=== PATIENT | male | born 1955 | race Caucasian/White ===

== ENCOUNTER 2024-11-18 10:54 | Outpatient (AMB) | payer OTHER, MEDICARE, SELFPAY ==
[2024-11-18 11:12] VITALS: BMI 25.1
--- NOTE | 2024-11-18 11:12 | A.SPINEOV_ITS ---
Vital Signs 11/18/24 11:12 Height 5 ft 10 in Weight 175 lb BMI 25.1 Intake Visit Reasons: LBP L4-L5/Sciatica Bilateral Intake Note: Mr. Barnhart is here today c/o Low back pain that radiates down to both legs. Insecticide Expert Required: No Allergies No Known Allergies Allergy (Verified 11/18/24 11:13) Physical Exam Vital Signs: BMI result Body Mass Index 25.1 Assessment & Plan Assessment & Plan (1) Lumbar stenosis: Code(s): M48.061 - Spinal stenosis, lumbar region without neurogenic claudication Category: Medical Plan This is a very nice 68-year-old gentleman self-referred to us, who presents for evaluation of right-sided low back pain radiating into initially just as right leg but now developed over into his left leg. It is aggravated with standing walking gets better when he sits down. Initially it was tolerable with ibuprofen, but now it is become worse as the months of gone on. He is having a hard time doing simple things like getting up in the morning and taking short walks. He usually will take his granddaughter for a walk down to the library and he has been unable to do that. He is also an active golfer, and when he plays he will have a significant difficulty trying to play the next day. He underwent physical therapy and that did not yield any lasting results. He is due for a cortisone injection coming up, and has been seen by pain management. It sounds like they may have consider doing a spinal cord stimulator on him as well. He takes ibuprofen daily to help with the pain. It does make it somewhat manageable but it is short lived and in general has not been a good long-term strategy. He has also done chiropractic and acupuncture. He is here today with an MRI done at [facility] showing severe stenosis at L4-5. PMH: Has a history of OCD, depression, BPH, anxiety, multiple shoulder operations. 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 Denies any major systemic disease, no cardiopulmonary issues, liver renal disease, diabetes, bleeding disorders, blood clots, cancer, major abdominal surgery or infections. 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 He has a slight spondylolisthesis at L4-5. He has epidural lipomatosis. He had a thoracic spinal MRI done as well and this showed incidental moderate C5-6 stenosis. No cord signal change. Mild T10-11 stenosis. Impression: 68-year-old male with right-sided low back pain progressive bilateral worsening leg pain right greater than left, worse when he stands and walks, better when he sits down. He has severe stenosis at L4-5. There is a slight spondylolisthesis there, so we will check flexion-extension x-rays to rule out instability. However, Dr. Martines and I sat down and met with him and offered him an L4-5 decompression, through right-sided approach we can do bilateral decompression with minimally invasive technique. We quoted success rate at 90%. The patient was given risk and benefits of surgery including but not limited to infection, hematoma, nerve injury, durotomy, weakness, bowel/bladder injury, persistent pain,[ ]. We also discussed the option to continue with conservative treatment and patient wishes to proceed with surgery. They are aware they should stop NSAIDs 7 days prior to surgery. All questions were answered to the best of our ability. If there is anything about this patients medical history that we have overlooked or concerns you have about us proceeding with surgery we would appreciate any input you can offer Thank you for allowing us to care for your patient. The total time spent with this visit with this patient was 45 minutes reviewing history, physical exam, lumbar imaging review, and implementation of treatment plan or further diagnostic testing Scottie Martines MD,PhD [facility] Orders: Orders XR lumbar spine 4V min Today M48.061 - Spinal stenosis, lumbar region without neurogenic claudication Coding Level of Care Code New Pt Level 4 (55149) Diagnoses Lumbar stenosis M48.061
--- OUTSIDE RECORDS SUMMARY | 2024-11-18 12:07 | XMS_ITS | Encounter Summary ---
Author Organization [facility] Address [address] [place] [address] Care Team Providers Care Manager Learning Name Role Phone Edwin Mensah DO Primary Care Provider Encounter Details Date Type Department Care Team (Late st Contact Info) Description 03/04/2024 Prep for Case [facility] [id number] Eddy Baker MD [address] [place] [address] Social History Tobacco Use Types Packs/Day Years Used Date Smoking Tobacco: Never Assessed Sex and Gender Information Value Date Recorded Sex Assigned at Male 02/29/2024 1:52 PM EST Legal Sex Male 8:55 AM EST Gender Identity Male 02/29/2024 1:52 PM EST Sexual Orientation Straight 02/29/2024 1: 52 PM EST documented as of this encounter Plan of Treatment Not on file documented as of this encounter Visit Diagnoses Not on filedocumented in this encounter Care Teams Manager Learning Relationship Specialty Start Date End Date Edwin Mensah DO [address] [place] [address] PCP - General Internal Medicine 02/29/24 documented as of this encounter
--- OUTSIDE RECORDS SUMMARY | 2024-11-18 12:07 | XMS_ITS | Patient Health Record ---
Author Organization [facility] Address [address] [address] Care Team Providers Care Candy Separator Hard Name Role Phone NADYA LEE, DR RANDALL Primary Care Provider Unava LLUVIA Martinez Unavailable [phone] Allergies No Known Allergies Reason For Referral No Information Medications Medication SIG (Take, Route, Frequency, Duration) Notes Start Date End Date Status hydroCHLOROthiazide 25 MG 1 tab(s) orally qd Active Problems Problem Type SNOMED Code ICD Code Onset Dates Problem Status W/U Status Risk Notes Problem Stricture of artery (18670867) Stricture of artery (I77.1) Active confirmed Plan Of Treatment No Information Insurance Providers Payer Name Payer Address Payer Phone Subscriber Number Group Number Insured Name Patient Relationship to Insured Coverage Start Date Coverage End Date [facility] [address] [place] [address] [id number] DONY HYMAN Self - patient is the insured
--- OUTSIDE RECORDS SUMMARY | 2024-11-18 12:07 | XMS_ITS | Clinical Summary ---
Author Organization [facility] Address [address] [place] [address] Care Team Providers Care Astro Technician Name Role Phone Edwin Mensah DO Primary Care Provider [phone] Allergies No known active allergies Medications ClonazePAM 0.5 MG Tab 1 TABLET 3 TIMES DAILY Active QUEtiapine Fumarate (SEROQUEL) 25 MG Tab 1 TABLET TWICE DAILY Active HydroCHLOROthi azide 12.5 MG Tab 1 TABLET DAILY Activ e Tamsulosin HCl (FLOMAX) 0.4 MG Cap 1 CAPSULE DAILY Acti ve Buprenorphine HCl 2 MG SL Tab Buprenorphine HCl - 8 MG Sublingual Tablet daily Sublingual Quantity: 35; Refills: 0 Started 26-Jan-2012 Active 2 Active ClomiPRAMINE HCl 50 MG Cap Anafranil 50 MG Oral Capsule , one capsule daily Active Ibuprofen 800 MG Tab TAKE 1 TABLET BY MOUTH EVERY 8 HOURS NEEDED FOR MILD PAIN(PAIN SCORE 1 TO 3) 8 Active Testosterone 200 MG PELLET Inject 150 mg into the shoulder, thigh, or buttocks muscle as directed every 14 days. Active Amphetamine-De xtroamphetamin e 30 MG Tab Amphetamine-Dextr oamphetamine 30 MG Oral Tablet Quantity: 30; Refills: 0 Started 01-Nov-2013 Active 4 Active Active Problems No known active problems Social History Tobacco Use Types Packs/Day Years Used Date Smoking Tobacco: Never Smokeless Tobacco: Never Intimate Partner Violence Answer Date R ecorded Fear of Current or Ex-Partner Not on file Emotionally Abused Not on file 10/09/2022 Physically Abused Not on file 10/09/2022 Sexually Abused Not on file 10/09/2022 Feel Safe at Home Not on file 10/09/2022 Sex and Gender Information Value Date Recorded Sex Assigned at Not on file Legal Sex Male 8:06 PM EST Gender Identity Not on file Sexual Orientation Not on file Last Filed Vital Signs Vital Sign Reading Time Taken Comments Blood Pressure 139/88 11/22/2017 1:47 PM EDT Pulse 91 11/22/2017 1:47 PM EDT Temperature 36.7 C (98 F) 11/22/2017 1:47 PM EDT Respiratory Rate 14 11/22/2017 1:47 PM EDT Oxygen Saturation - - Inhaled Oxygen Concentration - - Weight 83.9 kg (185 lb) 11/22/2017 1:47 PM EDT Height 180.3 cm (5' 11 ) 11/22/2017 1:47 PM EDT Body Mass Index 25.8 11/22/2017 1:47 PM EDT Plan of Treatment Health Maintenance Due Date Last Done Comments Hepatitis C Screening 1955 DTaP/Tdap/Td (1 - Tdap) 12/28/1973 Pneumococcal 50+ years (1 of 1 - PCV) 12/28/2005 Zoster (Shingrix) (1 of 2) 12/28/2005 COVID-19 Vaccine (1 - 2023-2 5 season) 2024 Influenza (#1) 2024 10/20/2013, 11/06/2011, 12/02/2010 RSV (1 - 1-dose 75+ series) 12/28/2030 Abdominal Aorta Imaging Discontinued HPV Vaccine (No Doses Required) Completed Hep A Aged Out No longer eligi ble based on patient's age to complete this topic Hep B Aged Out No longer eligi ble based on patient's age to complete this topic Hib Aged Out No longer eligi ble based on patient's age to complete this topic Meningococcal ACWY Aged Out No longer eligible based on patient's age to complete this topic Zoster (Zostavax) Discontinued Insurance [facility] POS Member Subscriber Plan / Payer (Ef fective 2016-Present) Name:Eddy Barnhart Relation to Subscriber:Self Name:Eddy Barnhart Payer ID:[id number] (NAIC) Type:POS Address: [address] [place] [id number] Care Teams Astro Technician Relationship Specialty Start Date End Date Edwin Mensah DO [facility] [address] [place] [address] PCP - General Internal Medicine 01/02/17
--- OUTSIDE RECORDS SUMMARY | 2024-11-18 12:07 | XMS_ITS | Encounter Summary ---
Author Organization [facility] Address [address] [place] [address] Care Team Providers Care Inclusion Internship Name Role Phone Edwin Mensah DO Primary Care Provider [phone] Reason for Referral * Diagnostic Imaging (Routine) - Pending Review Specialty Diagnoses / Procedures Referred By Roselyn roberts Referred To Contact Radiology Diagnoses Pain in joint of left shoulder Procedures X-RAY SHOULDER 2+ VIEWS LEFT Felipa Cazares PA [address] [place] [address] Phone: tel: fax: Referral ID Status Reason Start Date Expiration Date V isits Requested Visits Authorized [id number] Pending Review 05/04/2024 05/04/2025 1 1 Encounter Details Date Type Department Care Team (Late st Contact Info) Description 05/04/2024 Ancillary Orders [facility] X-ray [address] [place] [address] Felipa Cazares PA [address] [place] [address] Pain in joint of left shoulder (Primary Dx) Social History Tobacco Use Types Packs/Day Years Used Date Smoking Tobacco: Never Alcohol Use Standard Drinks/Week Comments Not Currently 0 (1 standard drink = 0.6 oz pur e alcohol) sober for 38 years. Sex and Gender Information Value Date Recorded Sex Assigned at Male 02/29/2024 1:52 PM EST Legal Sex Male 8:55 AM EST Gender Identity Male 02/29/2024 1:52 PM EST Sexual Orientation Straight 02/29/2024 1: 52 PM EST documented as of this encounter Plan of Treatment Not on file documented as of this encounter Results * X-RAY SHOULDER 2+ VIEWS LEFT (05/06/2024 11:23 AM EDT) Anatomical Region Laterality Modality Shoulder Left Digital Radiogra phy 05/06/2024 12:0 0 PM EDT Impressions 05/06/2024 11:41 AM EDT Left shoulder prosthesis in normal anatomic alignment. Dictated: 05/06/2024 11:41 AM Report ID: [id number] Exam performed at [facility]. Report signed in external system at [facility] on 05/06/2024 11:41 Reported By: Mark Steiner M.D. (SHELDON) Signed By: Mark Steiner M.D. (SHELDON) Narrative 05/06/2024 11:41 AM EDT RESPONSIBLE ENTRY ENGINEER: Mark Steiner M.D. EXAMINATION: XR SHOULDER 2+ VW LEFT CLINICAL INDICATION: Left shoulder pain. TECHNIQUE: Three views of the left shoulder. COMPARISON: CT SHOULDER LEFT WO CONTRAST dated 03/11/2024 FINDINGS: Post total left shoulder replacement with the result in anatomic alignment. The prosthesis is normal in appearance. The remainder of the bones and the soft tissues are unchanged. Procedure Note Mark Steiner MD - 05/06/2024 RESPONSIBLE ENTRY ENGINEER: Mark Steiner M.D. EXAMINATION: XR SHOULDER 2+ VW LEFT CLINICAL INDICATION: Left shoulder pain. TECHNIQUE: Three views of the left shoulder. COMPARISON: CT SHOULDER LEFT WO CONTRAST dated 03/11/2024 FINDINGS: Post total left shoulder replacement with the result in anatomicalignment. The prosthesis is normal in appearance. The remainder of thebones and the soft tissues are unchanged. IMPRESSION: Left shoulder prosthesis in normal anatomic alignment. Dictated: 05/06/2024 11:41 AM Report ID: [id number] Exam performed at [facility]. Report signed in external system at [facility] on 1:41 Reported By: Mark Steiner M.D. ([facility]) Signed By: Mark Steiner M.D. ([facility]) Felipa FERNANDEZ IMG XR PROCEDURES Final Result documented in this encounter Visit Diagnoses Diagnosis Pain in joint of left shoulder- Primary Pain in joint of left shoulder documented in this encounter Care Teams Inclusion Internship Relationship Specialty Start Date End Date Edwin Mensah DO [address] [place] [address] PCP - General Internal Medicine 02/29/24 documented as of this encounter
--- OUTSIDE RECORDS SUMMARY | 2024-11-18 12:07 | XMS_ITS | Clinical Summary ---
Author Organization [facility] Address [address] [place] [address] Care Team Providers Care Make Up Worker Name Role Phone MensahEdwin allenYi SUAREZ Primary Care Provider [phone] Allergies No known active allergies Medications buprenorphine HCL 8 mg tablet, sublingual Place 1 tablet (8 mg total) under the tongue daily. Active alfuzosin (UROXATRAL) 10 mg 24 hr tablet Take 1 tablet (10 mg total) by mouth daily. Active clomiPRAMINE (ANAFRANIL) 50 mg capsule Take 1 capsule (50 mg total) by mouth nightly. Active CLONAZEPAM ORAL Take 1 mg by mouth. Active amphetamine-dex troamphetamine XR (ADDERALL XR) 30 mg 24 hr capsule Take 1 capsule (30 mg total) by mouth 2 (two) times a day. Active hydroCHLOROthia zide (HYDRODIURIL) 25 mg tablet Take 1 tablet (25 mg total) by mouth daily. Active losartan (Cozaar) 50 mg tablet Take 2 tablets (100 mg total) by mouth daily. Active labetaloL (NORMODYNE) 200 mg tablet Take 1 tablet (200 mg total) by mouth 2 (two) times a day. Active multivitamin with minerals tablet Take 1 tablet by mouth daily. Active cholecalciferol , vitamin D3, (VITAMIN D3 ORAL) Take by mouth. Active Social History Tobacco Use Types Packs/Day Years Used Date Smoking Tobacco: Never Tobacco Cessation:Counseling Given: Not Answered Alcohol Use Standard Drinks/Week Comments Not Currently 0 (1 standard drink = 0.6 oz pur e alcohol) sober for 38 years. Sex and Gender Information Value Date Recorded Sex Assigned at Male 02/29/2024 1:52 PM EST Legal Sex Male 8:55 AM EST Gender Identity Male 02/29/2024 1:52 PM EST Sexual Orientation Straight 02/29/2024 1: 52 PM EST Last Filed Vital Signs Vital Sign Reading Time Taken Comments Blood Pressure - - Pulse - - Temperature - - Respiratory Rate - - Oxygen Saturation - - Inhaled Oxygen Concentration - - Weight 83.5 kg (184 lb) 03/16/2024 12:21 PM EST Height 177.8 cm (5' 10 ) 03/16/2024 12:21 PM EST Body Mass Index 26.4 03/16/2024 12:21 PM EST Plan of Treatment Health Maintenance Due Date Last Done Comments Hepatitis C Screening 12/28/1973 Periodic Health Exam 12/28/1973 Tetanus Diphtheria and Pertussis Vaccines (TD and TDaP) (1 - Tdap) 12/28/1974 Colon Cancer Screening 12/28/2000 Pneumococcal Vaccine: 65+ Years (1 of 1 - PCV) 12/28/2020 Influenza (Seasonal) 09/16/2024 12/15/2022, 01/14/2022, 12/21/2018, Additional history exists CoVid-19 Vaccine ( season) 2024 11/19/2020, 05/21/2020, 04/30/2020 Shingrix (Zoster Recombinant) Vaccine Completed 01/14/2022, 12/21/2017, 10/06/2017 HIB Vaccines Aged Out No longer eligi ble based on patient's age to complete this topic HPV Vaccines Aged Out No longer eligi ble based on patient's age to complete this topic Meningococcal Vaccine Aged Out No neptali moira eligible based on patient's age to complete this topic Insurance [address] [address] [address] PPO Care Teams Make Up Worker Relationship Specialty Start Date End Date Edwin Mensah DO [address] [place] [address] PCP - General Internal Medicine 02/29/24
--- OUTSIDE RECORDS SUMMARY | 2024-11-18 12:07 | XMS_ITS | Encounter Summary ---
Author Organization [facility] Address [address] [place] [address] Care Team Providers Care Consulting Project Director Name Role Phone Edwin Mensah DO Primary Care Provider Encounter Details Date Type Department Care Team (Late st Contact Info) Description 03/18/2024 Procedure [facility] [address] [place] [id number] [phone] Social History Tobacco Use Types Packs/Day Years [...] on filedocumented in this encounter Care Teams Consulting Project Director Relationship Specialty Start Date End Date Edwin Mensah DO [address] [place] [address] PCP - General Internal Medicine 02/29/24 documented as of this encounter
--- OUTSIDE RECORDS SUMMARY | 2024-11-18 12:07 | XMS_ITS | Encounter Summary ---
Author Organization [facility] Address [address] [place] [address] Care Team Providers Care Cataract Lens Generator Name Role Phone Edwin Mensah DO Primary Care Provider [phone] Reason for Referral * Diagnostic Imaging (Routine) - Closed Specialty Diagnoses / Procedures Referred By Roselyn roberts Referred To Contact Radiology Diagnoses Other specified joint disorders, left shoulder Procedures CT SHOULDER LEFT WITHOUT CONTRAST Eddy Baker MD [address] [place] [address] Phone: tel: fax: Referral ID Status Reason Start Date Expiration Date Visits Re quested Visits Authorized [id number] Closed 02/23/2024 02/22/2025 1 1 Encounter Details Date Type Department Care Team (Late st Contact Info) Description 02/23/2024 Ancillary Orders [facility] CT Scan [address] [place] [address] Eddy Baker MD [address] [place] [address] Other specified joint disorders, left shoulder (Primary Dx) Social History Tobacco [...] documented as of this encounter Results * CT SHOULDER LEFT WITHOUT CONTRAST (03/11/2024 8:02 AM EST) Anatomical Region Laterality Modality Shoulder Left Computed Tomogra phy 03/11/2024 8:30 AM EST Impressions 03/11/2024 8:24 AM EST Left glenohumeral joint osteoarthritis with a small joint effusion and tiny loose bodies in the axillary pouch. Old fracture deformity of the left distal clavicle. Osteoarthritis of the left AC joint. Fatty atrophy of the supraspinatus and infraspinatus muscles Tiny pulmonary nodules. Non urgent low-dose chest CT is recommended for assessment of the lungs. Dictated: 03/11/2024 8:24 AM Report ID: [id number] Exam performed at [facility]. Report signed in external system at [facility] on 03/11/2024 08:24 Reported By: Grayson King M.D. (MARED) Signed By: Grayson King M.D. (MARKENDY) Narrative 03/11/2024 8:24 AM EST RESPONSIBLE BIRD KEEPER: Grayson King M.D. EXAMINATION: CT SHOULDER LEFT WO CONTRAST CLINICAL INDICATION: 68-year-old for evaluation prior to total left shoulder replacement. Left shoulder pain. TECHNIQUE: Continuous axial images were obtained through the left glenohumeral joint on a multidetector CT scanner without intravenous contrast. 2-D sagittal and coronal reconstructions were performed. Dose reduction technique: iterative reconstruction. COMPARISON: None FINDINGS: BONES: Normal bone mineral density. Old healed fracture deformity of the distal left clavicle. Multiple well corticated bone fragments project inferior to the clavicle at the level of the coracoclavicular ligament. JOINTS: Osteoarthritis at the glenohumeral joint characterized by asymmetric joint space narrowing and marginal osteophytes. Severe osteoarthritis of the left acromioclavicular joint. SOFT TISSUES: Muscle atrophy of the supraspinatus and infraspinatus muscles. Small joint effusion. Tiny loose bodies in the axillary pouch. Pleural and parenchymal scarring noted at the left lung apex. 3 mm pars solid nodule series 4, image 104 left upper lobe. 1-2 mm nodule image 91. No mediastinal lymphadenopathy. Procedure Note Grayson King MD - 03/11/2024 RESPONSIBLE BIRD KEEPER: Grayson King M.D. EXAMINATION: CT SHOULDER LEFT WO CONTRAST CLINICAL INDICATION: 68-year-old for evaluation prior to total left shoulder replacement. Leftshoulder pain. TECHNIQUE: Continuous axial images were obtained through the left glenohumeral jointon a multidetector CT scanner without intravenous contrast. 2-D sagittaland coronal reconstructions were performed. Dose reduction technique: iterative reconstruction. COMPARISON: None FINDINGS: BONES: Normal bone mineral density. Old healed fracture deformity of thedistal left clavicle. Multiple well corticated bone fragments projectinferior to the clavicle at the level of the coracoclavicular ligament. JOINTS: Osteoarthritis at the glenohumeral joint characterized byasymmetric joint space narrowing and marginal osteophytes. Severe osteoarthritis of the left acromioclavicular joint. SOFT TISSUES: Muscle atrophy of the supraspinatus and infraspinatusmuscles. Small joint effusion. Tiny loose bodies in the axillarypouch. Pleural and parenchymal scarring noted at the left lung apex. 3 mm parssolid nodule series 4, image 104 left upper lobe. 1-2 mm nodule image91. No mediastinal lymphadenopathy. IMPRESSION: Left glenohumeral joint osteoarthritis with a small joint effusion andtiny loose bodies in the axillary pouch. Old fracture deformity of the left distal clavicle. Osteoarthritis of theleft AC joint. Fatty atrophy of the supraspinatus and infraspinatus muscles Tiny pulmonary nodules. Non urgent low-dose chest CT is recommended forassessment of the lungs. Dictated: 03/11/2024 8:24 AM Report ID: [id number] Exam performed at [facility]. Report signed in external system at [facility] on 508:24 Reported By: Grayson King M.D. (SHARRI) Signed By: Grayson King M.D. (SAHRRI) Eddy Baker MD [facility] CT PROCEDURES Final Result documented in this encounter Visit Diagnoses Diagnosis Other specified joint disorders, left shoulder- Primary Other specified joint disorders, left shoulder documented in this encounter Care Teams Cataract Lens Generator Relationship Specialty Start Date End Date Edwin Mensah DO [address] [place] [address] PCP - General Internal Medicine 02/29/24 documented as of this encounter
--- OUTSIDE RECORDS SUMMARY | 2024-11-18 12:07 | XMS_ITS | Clinical Summary ---
Author Organization [facility] Address [address] [place], [place] [id number] Care Team Providers [employer] Person Name Role Phone Edwin Mensah Primary Care Provider [phone] Medications dextroamphetami ne-amphetamine ER (ADDERALL XR) 30 MG 24 hr capsule Take 1 capsule (30 mg total) by mouth 2 (two) times a day. 03/16/2024 Active hydroCHLOROthia zide (HYDRODIURIL) 25 MG tablet Take 1 tablet (25 mg total) by mouth daily. 03/16/2024 Active labetaloL (TRANDATE) 200 MG tablet Take 1 tablet (200 mg total) by mouth 2 (two) times a day. 03/16/2024 Active multivitamin with minerals tablet Take 1 tablet by mouth daily. 03/16/2024 Active buprenorphine (SUBUTEX) [address] 1 tablet (8 mg total) under the tongue daily. 03/16/2024 Active clomiPRAMINE (ANAFRANIL) 50 MG capsule Take 1 capsule (50 mg total) by mouth nightly. 03/16/2024 Active alfuzosin ER (UROXATRAL) 10 mg 24 hr tablet Take 1 tablet (10 mg total) by mouth daily. 03/16/2024 Active losartan (COZAAR) 50 MG tablet Take 2 tablets (100 mg total) by mouth daily. 03/16/2024 Active Immunizations Immunization Administration Dates Next Due COVID-19 Vaccine ([employer]) Original Formulation (prior to Feb 2021) 11/19/2020,05/21/2020,04/30/2020 Social History Tobacco Use Types Packs/Day Years Used Date Smoking Tobacco: Never Alcohol Use Standard Drinks/Week Comments Not Currently 0 (1 standard drink = 0.6 oz pur e alcohol) Sex and Gender Information Value Date Recorded Sex Assigned at Male 11/17/2024 9:33 AM EDT Legal Sex Male 1:04 AM EST Gender Identity Male 11/17/2024 9:33 AM EDT Sexual Orientation Straight 11/17/2024 9: 33 AM EDT Plan of Treatment Health Maintenance Due Date Last Done Comments Blood Pressure 1955 Lipid Panel 1955 PSA 1955 Prostate Cancer Screening 1955 SDM 1955 Depression Screening 1959 Hepatitis C Screening 12/28/1973 DTaP,Tdap,and Td Vaccines (1 - Tdap) 12/28/1974 CT Colonography 12/28/2000 Colonoscopy 12/28/2000 Colorectal Cancer Screening 12/28/2000 FIT 12/28/2000 FOBT 12/28/2000 Multitarget Stool DNA (Cologuard) 12/28/2000 Sigmoidoscopy 12/28/2000 Pneumococcal Vaccine: 50+ Years (1 of 1 - PCV) 12/28/2005 Zoster Vaccine (1 of 2) 12/28/2005 COVID-19 Vaccine (4 - 2024-2 6 season) 2024 11/19/2020, 05/21/2020, 04/30/2020 Influenza Vaccine (#1) 2024 Meningococcal B Vaccines Aged Out No longer eligible based on patient's age to complete this topic Meningococcal Vaccines Aged Out No lo nger eligible based on patient's age to complete this topic Care Teams [employer] Person Relationship Specialty Start Date End Date Edwin Mensah [address] [place] [id number] PCP - General Internal Medicine 02/29/24
--- OUTSIDE RECORDS SUMMARY | 2024-11-18 12:07 | XMS_ITS | Encounter Summary ---
Author Organization [facility] Address [address] [place] [address] Care Team Providers Care Lance Crewmember Name Role Phone Edwin Mensah DO Primary Care Provider [phone] Reason for Referral * Diagnostic Imaging (Routine) - Pending Review Specialty Diagnoses / Procedures Referred By Roselyn roberts Referred To Contact Radiology Diagnoses Pain in joint of left shoulder Procedures X-RAY SHOULDER 2+ VIEWS LEFT Eddy Baker MD [address] [place] [address] Phone: tel: fax: Referral ID Status Reason Start Date Expiration Date V isits Requested Visits Authorized [id number] Pending Review 06/26/2024 06/26/2025 1 1 Encounter Details Date Type Department Care Team (Late st Contact Info) Description 06/26/2024 Ancillary Orders [facility] X-ray [address] [place] [id number] Eddy Baker MD [address] [place] [address] Pain in joint of left shoulder (Primary [...] Results * X-RAY SHOULDER 2+ VIEWS LEFT (06/27/2024 2:42 PM EDT) Anatomical Region Laterality Modality Shoulder Left Digital Radiogra phy 06/27/2024 3:45 PM EDT Impressions 06/27/2024 3:27 PM EDT Normal anatomic alignment of the left reverse total shoulder arthroplasty without evidence of hardware complication. I, the attending physician, attest that I have performed and/or supervised the resident for the terrell and critical components of this procedure. I have personally reviewed the images pertinent to this examination and agree with the interpretation. Dictated: 06/27/2024 3:27 PM Report ID: [id number] Exam performed at [facility]. Report signed in external system at [facility] on 06/27/2024 15:27 Reported By: Hailey Burgess M.D. (resident) ([id number]) Signed By: Isaac Magana M.D. ([facility]) Narrative 06/27/2024 3:27 PM EDT RESPONSIBLE CHOIR DIRECTOR: Isaac Magana M.D. EXAMINATION: XR SHOULDER 2+ VW LEFT CLINICAL INDICATION: Left shoulder pain. TECHNIQUE: Three views of the left shoulder. COMPARISON: XR SHOULDER 2+ VW LEFT dated 05/06/2024; CT SHOULDER LEFT WO CONTRAST dated 03/11/2024 FINDINGS: The patient is status post reverse total left shoulder arthroplasty with hardware in anatomic alignment. There is no evidence of hardware loosening or fracture. Osteoarthritis of the acromioclavicular joint. The partially imaged left thorax is normal. Procedure Note Isaac Magana MD - 06/27/2024 RESPONSIBLE CHOIR DIRECTOR: Isaac Magana M.D. EXAMINATION: XR SHOULDER 2+ VW LEFT CLINICAL INDICATION: Left shoulder pain. TECHNIQUE: Three views of the left shoulder. COMPARISON: XR SHOULDER 2+ VW LEFT dated 05/06/2024; CT SHOULDER LEFT WO CONTRAST date03/11/2024 FINDINGS: The patient is status post reverse total left shoulder arthroplasty withhardware in anatomic alignment. There is no evidence of hardwareloosening or fracture. Osteoarthritis of the acromioclavicular joint. The partially imaged left thorax is normal. IMPRESSION: Normal anatomic alignment of the left reverse total shoulder arthroplastywithout evidence of hardware complication. I, the attending physician, attest that I have performed and/or supervised the resident for the terrell and critical components of this procedure. I have personally reviewed the images pertinent to this examination and agree with the interpretation. Dictated: 06/27/2024 3:27 PM Report ID: [id number] Exam performed at [facility]. Report signed in external system at [facility] on 515:27 Reported By: Hailey Burgess M.D. (resident) ([id number]) Signed By: Isaac Magana M.D. ([facility]) Eddy Baker MD IMG XR PROCEDURES Final Result documented in this encounter Visit Diagnoses Diagnosis Pain in joint of left shoulder- Primary Pain in joint of left shoulder documented in this encounter Care Teams Lance Crewmember Relationship Specialty Start Date End Date Edwin Mensah DO [address] [place] [id number] PCP - General Internal Medicine 02/29/24 documented as of this encounter
== END 2024-11-18 11:58 | disposition home or self-care (01) ==
PROVIDERS: Visit Provider Physician Assistant
DX: M48.061 Spinal stenosis, lumbar region without neurogenic claudication (principal)
CPT/HCPCS: 99204

== ENCOUNTER 2024-11-18 10:54 | Outpatient (REF) | payer OTHER, SELFPAY ==
--- NOTE | ~2024-11-18 | XR_ITS ---
Exam: 4 view lumbar spine TECHNIQUE: AP, and lateral: Flexion, neutral, and extension view x-rays of the lumbar spine. Prior: None INDICATION: M48.061 - Spinal stenosis, lumbar region without neurogenic claudication FINDINGS: Moderate stool is noted in the colon. Atherosclerotic calcification is visible in the aorta. There are 5 non-rib bearing lumbar segments. Vertebral body height is preserved. T12-L1: There is mild disc space narrowing. L1-L2: There is mild disc space narrowing with anterior osteophyte. L2-L3: There is mild disc space narrowing and anterior osteophytes. There is subtle retrolisthesis without instability. L3-L4: There is mild disc space narrowing and endplate osteophytes. There is facet sclerosis. There is subtle retrolisthesis without instability. L4-L5: There is mild disc space narrowing and facet sclerosis. There is minimal grade 1 anterolisthesis without instability on flexion and extension. L5-S1: There are anterior osteophytes and facet sclerosis. There is no malalignment or instability. XR/XR lumbar spine 4V min IMPRESSION: Multilevel degenerative disc disease and facet arthropathy, outlined above. No instability was demonstrated during flexion and extension views. Electronically signed by: Itz Moreno MD 11/18/2024 01:13 PM EDT
== END 2024-11-18 10:55 | disposition home or self-care (01) ==
LOC: HO.HOSX 10:54
PROVIDERS: Visit Provider Physician Assistant
DX: M48.061 Spinal stenosis, lumbar region without neurogenic claudication (principal)
CPT/HCPCS: 72110

== ENCOUNTER → 2024-11-18 11:52 | Outpatient (BNV) | payer OTHER, SELFPAY | PROVIDERS: Visit Provider Radiology Diagnostic Radiology | DX: M48.061 Spinal stenosis, lumbar region without neurogenic claudication (principal) | CPT/HCPCS: 72110 ==

== ENCOUNTER 2025-01-19 10:24 | Day surgery (SDC) | payer OTHER, SELFPAY ==
[2025-01-10 12:12] VITALS: BP 131/61; PULSE 62; RESP 18; O2SAT 97; BMI 25.1
--- NOTE | 2025-01-10 12:33 | HO.ANESPROP2 ---
Documented by User: Terri Abdalla NP 01/10/25 13:05 HPI - Anesthesia Eval Consult details Narrative: 69yo M for Right-sided approach for a bilateral L4-5 Decompression, 01/19/25 No recent illness No CP/SOB with golf with cart, activities around the house Buprenorphine 8mg daily. Instructed 48 hour hold. Verbalized understanding. L total shoulder 03/2024 - difficulties with poorly managed post-op pain control and inability to urinate (on alfluzosin) PMFSH Active Problems Active Problems: All Active Problems Lumbar stenosis (Acute) Past Medical History Medical History Anesthesia complication Anxiety OCD (obsessive compulsive disorder) Depression Opioid use disorder, mild, in sustained remission Sciatica Neuropathy Spinal stenosis Arthritis HTN (hypertension) Family History Family history of problems with anesthesia: No Surgical History Surgical History H/O colonoscopy History of ankle surgery Hx of shoulder surgery History of Problems with Anesthesia: No Social History Social History Are you a primary wound care physician to a significant other at home: No Do you presently have visiting nurse or other home services: No Patient Tobacco Use Status: Never used Tobacco Use of substances other than those prescribed or required for medical reasons: Yes Substance Use Type Other:: no alcohol since age 31 / past hx opiate use disorder-taking buprenorphine Have you been hit, kicked, punched, or otherwise hurt by someone within the past year? If so, by whom?: No Spiritual Healthcare Practices: no Sabianist Healthcare Practices: no Cultural Healthcare Practices: no Are you DNR?: No Advance Directives Information Provided: Yes (as above noted) Advance Directives on File: No Meds Allergies Allergy/AdvReac Type Severity Reaction Status Date / Time gabapentin AdvReac Agitated Verified 01/19/25 10:53 Home Medications ?Medication ?Instructions ?Recorded ?Confirmed ?Last Taken ?Type alfuzosin 10 mg tablet,extended 10 mg PO BEDTIME 01/09/25 01/10/25 Unknown History release 24 hr buprenorphine HCl 8 mg sublingual 8 mg sublingual DAILY 01/09/25 01/09/25 Unknown History tablet clomipramine 50 mg capsule 50 mg PO BEDTIME 01/09/25 01/09/25 Unknown History clonazepam 1 mg tablet 1 mg PO BEDTIME PRN Anxiety 01/09/25 01/09/25 Unknown History dextroamphetamine-amphetamine 30 1 tab PO BID 01/09/25 01/09/25 Unknown History mg tablet hydrochlorothiazide 25 mg tablet 25 mg PO DAILY 01/09/25 01/09/25 Unknown History labetalol 200 mg tablet 200 mg PO BID 01/09/25 01/09/25 Unknown History testosterone cypionate 200 mg/mL 200 mg IM QWEEK 01/09/25 01/09/25 Unknown History intramuscular oil losartan 100 mg tablet 100 mg PO DAILY 01/10/25 01/10/25 Unknown History rosuvastatin 10 mg tablet 10 mg PO BEDTIME 01/10/25 01/10/25 Unknown History Exam Height,Weight and Vital Signs: Height 5 ft 10 in Weight 79.379 kg Last Vital Signs Pulse 62 01/10/25 12:12 Resp 18 01/10/25 12:12 BP 131/61 01/10/25 12:12 Pulse Ox 97 01/10/25 12:12 O2 Del Method Room Air 01/10/25 12:12 Pertinent Lab Results Pertinent Lab Results: CBC and BMP 02/2024 WNL Narrative Narrative: EKG 02/2024 NSR @ 80 Airway Mallampati Class: I TM Dist: >3cm Neck ROM: Full Loose/Missing/Broken Teeth: No (implants #7 and molars) Heart: RRR Lungs: CTAB Assessment and Plan Assessment Anesthesia Assessment: Anesthesia Plan Discussed and PAT Visit Final Anesthetic Review Family History of Problems with Anesthesia: No History of Problems with Anesthesia: No Documented by User: Otilia Leon MD 01/19/25 11:05 [facility] Past Medical History Medical History Anesthesia complication Anxiety OCD (obsessive compulsive disorder) Depression Opioid use disorder, mild, in sustained remission Sciatica Neuropathy Spinal stenosis Arthritis HTN (hypertension) Surgical History Surgical History H/O colonoscopy History of ankle surgery Hx of shoulder surgery Social History Social History Are you a primary wound care physician to a significant other at home: No Do you presently have visiting nurse or other home services: No Patient Tobacco Use Status: Never used Tobacco Use of substances other than those prescribed or required for medical reasons: Yes Substance Use Type Other:: no alcohol since age 31 / past hx opiate use disorder-taking buprenorphine Have you been hit, kicked, punched, or otherwise hurt by someone within the past year? If so, by whom?: No Spiritual Healthcare Practices: no Sabianist Healthcare Practices: no Cultural Healthcare Practices: no Are you DNR?: No Advance Directives Information Provided: Yes (as above noted) Advance Directives on File: No Meds Allergies Allergy/AdvReac Type Severity Reaction Status Date / Time gabapentin AdvReac Agitated Verified 01/19/25 10:53 Home Medications ?Medication ?Instructions ?Recorded ?Confirmed ?Last Taken ?Type alfuzosin 10 mg tablet,extended 10 mg PO BEDTIME 01/09/25 01/10/25 Unknown History release 24 hr buprenorphine HCl 8 mg sublingual 8 mg sublingual DAILY 01/09/25 01/09/25 Unknown History tablet clomipramine 50 mg capsule 50 mg PO BEDTIME 01/09/25 01/09/25 Unknown History clonazepam 1 mg tablet 1 mg PO BEDTIME PRN Anxiety 01/09/25 01/09/25 Unknown History dextroamphetamine-amphetamine 30 1 tab PO BID 01/09/25 01/09/25 Unknown History mg tablet hydrochlorothiazide 25 mg tablet 25 mg PO DAILY 01/09/25 01/09/25 Unknown History labetalol 200 mg tablet 200 mg PO BID 01/09/25 01/09/25 Unknown History testosterone cypionate 200 mg/mL 200 mg IM QWEEK 01/09/25 01/09/25 Unknown History intramuscular oil losartan 100 mg tablet 100 mg PO DAILY 01/10/25 01/10/25 Unknown History rosuvastatin 10 mg tablet 10 mg PO BEDTIME 01/10/25 01/10/25 Unknown History Assessment and Plan Assessment Anesthesia Assessment: Chart Reviewed Final Anesthetic Review NPO: Yes ASA Class: III Final Preanesthetic Review: No Changes in Pt Med Stat, Meds/Allgs Chart Reviewed, Consent Obtained/Reviewed and Anes Risks/Benef Reviewed Patient Risk: Intermediate Procedure Risk: Intermediate Anesthetic Plan Anesthetic Plan: GA and Agree w/ Assess. and Plan Disposition: Standard PACU
[2025-01-19] VITALS (17 sets, daily range): BP systolic 99–138; BP diastolic 52–84; PULSE 61–76; RESP 9–20; TEMP 36.1–36.6; O2SAT 96–100; BMI 26.6
--- NOTE | ~2025-01-19 | FL_ITS ---
EXAMINATION: XR FLUOROSCOPY WITH IMAGES CLINICAL INFORMATION: Bilateral L4-5 decompression COMPARISON: None available. TECHNIQUE: Fluoroscopy time: 0.06 seconds DAP: 81 mGycm2 Images: 4 FINDINGS: Fluoroscopy the operating room. Intraoperative images related to the reported L5-S1 decompression. FL/FL guidance in OR IMPRESSION: Fluoroscopy in the operating room. See surgical report for additional information. Electronically signed by: Brandon Richter MD 01/20/2025 01:47 PM [facility]
[2025-01-19] MEDS: Lactated Ringers 1,000 ML 100 ML IVCONT (10:58)
--- NOTE | 2025-01-19 11:59 | MHC.SHP ---
Pre-Procedural Eval Section A - 24 Hr Update-Section A only Date of Service: 01/19/25 The patient is an INPATIENT: No Section B - Complete if H&P > 30 days Chief Complaint: Spinal stenosis, lumbar region without neurogenic Allergies: Allergies Allergy/AdvReac Type Severity Reaction Status Date / Time gabapentin AdvReac Agitated Verified 01/19/25 10:53 Review of Systems Sugical H&P ROS: Negative: Constitution, Cardiovascular, Respiratory, Neurological, Psychiatric, Hem-Onc, Allergic/Immunologic, Gastrointestinal, Genitourinary, Musculoskeletal, Integumentary, Endocrine and Eyes/Ears/Nose/Throat Exam Surgical H&P Exam: Normal: HEENT, Normal: Heart, Normal: Lungs, Normal: Extremities, Normal: Abdomen, Normal: Skin and Normal: Neurological (Awake, alert) Plan Diagnosis/Plan: Unchanged I have reviewed the history and physical and performed a pertinent physical examination on my patient. No changes have occurred unless specified. L4-5 decompression Time Spent With Patient Time: Total time managing care of this patient today __5__ minutes.
--- NOTE | 2025-01-19 14:25 | W.PM.OPN ---
Operative Note Operative Note Date of Service: 01/19/25 Narrative: Preoperative Diagnosis: L4-5 spinal stenosis/lateral recess stenosis/neural foraminal stenosis Operation: L4-5 Laminotomy, Partial facetectomy and foraminotomy with use of microscope Consent Informed Consent was obtained for this operation. I have explained the nature, purpose and benefits of the operation. I have discussed the risks and benefit of the operation including possible complications or adverse events with patient/family. Alternative(s) were discussed with the patient with their relative benefits and risks as well as the consequences of not accepting the operation were included in obtaining consent. Surgeon: ANGE YBARRA MD, PHD Procedure Assisted By: Rolando Mcnamara Description of Procedure This 69-year-old male suffering from neurogenic claudication. MRI shows L4-5 central spinal stenosis and lateral recess stenosis. The patient was offered a decompression. The procedure complications were explained. The patient was consented. The patient was brought to the operating room and endotracheally intubated. The patient was turned in prone position on the Uday frame. Prep and drape was done followed by timeout. The Physician instruction assistant principal provided access. A mid lumbar incision was made followed by release of the paravertebral muscle on the right side to expose the L4-5 lamina and facet joints. An intraoperative x-ray was obtained to confirm the correct level. The microscope was brought in. I took over the procedure. The high-speed drill was used to do a L4-5 laminotomy until flavum ligament was reached. A #2 Kerrison was used to expand the laminotomy near flush to the pedicles and to include a partial facetectomy. The flavum ligament was opened and resected with a #3 Kerrison to decompress the underlying thecal sac. The flavum ligament was removed to decompress the lateral recess and the exiting L5 nerve root. The patient was turned contralaterally. The spinous process was undercut and in this way I was able to restore contralaterally side where I removed flavum ligament from the lateral recess to decompress the exiting nerve root. A long nerve hook could be easily passed along the medial side of the pedicles as a sign of adequate decompression. The microscope was removed. Hemostasis was done. The physician instruction assistant principal close the Incision in 2 layers. Steri-Strips were used to approximate incision. An OpSite with Tegaderm was used to cover the incision. All sponge needle counts were correct. Patient was extubated and transported in stable is to recovery room. Anesthesia: General Estimated Blood Loss (ml): 60 Complications: None Duration of Surgery: Under 60 Minutes Postoperative Plan: Discharge to home
--- NOTE | 2025-01-19 14:31 | P.DS_ITS ---
DS: Providers Provider Date of Service: 01/19/25 Date of discharge: 01/19/25 Primary care physician: Edwin Mensah DO DS: Summary Time Attestation Discharge Coordination Time (in mins): 12 Quality: Safe Use of Opioids Does Pt have an Active Cancer Diagnosis on the Problem List?: No Quality: Stroke Does the patient have a stroke diagnosis?: No Physical Exam Vital Signs: Vital Signs: Last Vital Signs Temp 97.0 F 01/19/25 11:03 Pulse 76 01/19/25 11:03 Resp 20 01/19/25 11:03 BP 126/64 01/19/25 11:03 Pulse Ox 96 01/19/25 11:03 O2 Del Method Room Air 01/19/25 11:03 BMI result Body Mass Index 26.6 Discharge Plan Discharge Patient Disposition: Home, Self-Care Referrals: Edwin Mensah DO [Primary Care Provider, Internal Medicine] - 1 Week Discharge Medications: New ibuprofen 600 mg tablet 600 mg PO Q8H PRN (Reason: pain) Qty: 30 0RF Continued labetalol 200 mg tablet 200 mg PO BID clonazepam 1 mg tablet 1 mg PO BEDTIME PRN (Reason: Anxiety) dextroamphetamine-amphetamine 30 mg tablet 1 tab PO BID hydrochlorothiazide 25 mg tablet 25 mg PO DAILY clomipramine 50 mg capsule 50 mg PO BEDTIME testosterone cypionate 200 mg/mL oil 200 mg IM QWEEK buprenorphine HCl 8 mg Tablet, Sublingual 8 mg SUBLINGUAL DAILY Patient Comments: pt took 4mg yesterday alfuzosin 10 mg tablet extended release 24 hr 10 mg PO BEDTIME losartan 100 mg Tablet 100 mg PO DAILY rosuvastatin 10 mg tablet 10 mg PO BEDTIME Discharge Orders: Discharge Order (Routine); Ordered 01/19/25 Ordered By: Rolando Garcia Diet: Advance to usual diet Activity on Discharge: As tolerated Activity Restrictions/Additional Instructions: After your spinal surgery we ask you to observe the following restri ctions/guidelines: Activity: It is normal to feel some discomfort as you increase your activity, but that will improve with time. We ask you avoid heavy lifting or acitivities that cause pain. As a general rule, 8lbs is a safe limit for lifting right after surgery. Walk as much as you feel comfortable but not to exhaustion. You will feel extra tired the first few days after surgery. Stay well hydrated. It is OK to walk up and down stairs You may return to driving when you are off narcotics (such as vicodin, oxycodone, dilaudid, etc), and you are back to normal functional capacity. If you have any concerns please check with office before driving. Return to work is specific to each patient and each surgery, so please speak with your doctor/PA at first follow up. Please bring paperwork such as FMLA at that time if you need it filled out. Medications: Continue to take your buprenorphine medication for pain control. Supplement this with the 600mg Ibuprofen sent in to the pharmacy here at [facility] as needed. Do not start this medication until tomorrow to reduce risk of bleeding. We recommend you take 500mg Tylenol every 4 hours for the first week after surgery, if you do not have any liver issues and can tolerate this medication. Do not exceed 4,000mg daily. We will give you a short supply of narcotics after surgery (usually one weeks worth). If you need more please call the office but do not use more than prescribed. You will need to give our office 48 hours notice if you need narcotics refilled and we do not fill narcotics on weekends or evenings. If you are on a narcotic, it is a good idea to take a stool softener such as colace or senna to avoid constipation If you take blood thinner such as aspirin, Plavix, Coumadin, Effient, Eliquis etc for conditions such as Afib, DVT, Pulmonary embolus, coronary disease, stents etc please speak with your surgeon about specific details as to when you can resume these medications. You can resume NSAIDs on post op day 1 (eg: Motrin, Naproxen, etc). Follow up: Please call the office, , after surgery to arrange a 3 week follow up for wound check. Wound Care: You may remove your dressing on the first day after surgery. ?You may ?leave open to air. Please do not remove the steri strips underneath. they will fall off on their own in one week. IT IS NORMAL FOR THE WOUND TO OOZE OR BE BLOODY FOR A FEW DAYS AFTER SURGERY. ?IF THIS HAPPENS JUST PLACE NEW DRESSING OVER IT TO AVOID STAINING CLOTHES. You may shower on post op day # 1 We ask that you do not let the water soak the wound. If it does get wet, just towel dry lightly. Please do not scrub your incision or place any type of chemical/ointment on the wound. No tub baths, pools or jacuzzis for one month. If you have any leaking or redness from your wound, or fevers, please call the office. Print Language: Bulgarian
[2025-01-19] MEDS: oxyCODONE HCl Immed Release 5 MG TABLET PO (16:21)
== END 2025-01-19 16:38 | disposition home or self-care (01) ==
PROVIDERS: PCP Internal Medicine; Visit Provider Neurological Surgery
PROC: (CPT 63047; principal; 2025-01-19 13:30)
DX: M48.062 Spinal stenosis, lumbar region with neurogenic claudication (principal); R26.2 Difficulty in walking, not elsewhere classified; M54.42 Lumbago with sciatica, left side; M54.41 Lumbago with sciatica, right side; F42.9 Obsessive-compulsive disorder, unspecified; F33.9 Major depressive disorder, recurrent, unspecified; N40.0 Benign prostatic hyperplasia without lower urinary tract symptoms; F41.9 Anxiety disorder, unspecified; Z79.899 Other long term (current) drug therapy; F11.91 Opioid use, unspecified, in remission; Z98.890 Other specified postprocedural states
CPT/HCPCS: 63047; J0131; J0690; J1100; J1171; J1885; J2003; J2250; J2405; J2704; J3010

== ENCOUNTER → 2025-01-19 10:24 | Outpatient (BNV) | payer OTHER, SELFPAY | PROVIDERS: PCP Internal Medicine; Visit Provider Neurological Surgery | DX: M48.061 Spinal stenosis, lumbar region without neurogenic claudication (principal) | CPT/HCPCS: 63047; 99499 ==

== ENCOUNTER 2025-02-07 13:35 | Outpatient (AMB) | payer OTHER, SELFPAY ==
--- NOTE | 2025-02-07 13:18 | A.SPINEOV_ITS ---
Intake Visit Reasons: 1st post op Intake Note: Mr. Barnhart is here today for his 1st post op. Cotton Gin Yard Supervisor Required: No Allergies gabapentin Adverse Reaction (Verified 02/07/25 13:38) Agitated Assessment & Plan Assessment & Plan (1) Status post lumbar spine surgery for decompression of spinal cord: Code(s): Z98.890 - Other specified postprocedural states Category: Medical Plan Operation: L4-5 Laminotomy Ariel is a pleasant 69 year old male who comes in today for his 1st postoperative visit after having the above mentioned procedure completed by Dr. Martines. He reports that overall he has seen improvements in his pain since his surgery, and feels that his surgery has been successful. He does still report some posterior buttocks pain, however states it is fairly well controlled with ibuprofen. He asked several questions regarding the postoperative healing course, all of which I answered to the best of my ability. No new neurological deficits. The patient ambulates well and rises from a seated position without difficulty. He uses no assistive devices to ambulate. His posterior incision site is closed and well healing, with no signs of erythema or drainage. He still had his Steri-Strips in place at this appointment today which I removed during this visit. I would like to follow up with Ariel again in 6 weeks for his 2nd postoperative visit. Rolando Martines MD,PhD [facility] [employer] Coding Level of Care Code Global (13919) Diagnoses Status post lumbar spine surgery for decompression of spinal cord Z98.890
--- OUTSIDE RECORDS SUMMARY | 2025-02-07 14:44 | XMS_ITS | Clinical Summary ---
Author Organization [facility] Address [address] [place] [address] Care Team Providers Care Accounts Receivable Clerk Name Role Phone Edwin Mensah DO Primary Care Provider [phone] Allergies No known active allergies Medications ClonazePAM [...] (Shingrix) (1 of 2) 12/28/2005 COVID-19 Vaccine ( - 2024-2 6 season) 2024 Influenza (#1) 2024 10/20/2013, 11/06/2011, [...] complete this topic Zoster (Zostavax) Discontinued Insurance [facility] POS Member Subscriber Plan / Payer (Ef fective 2016-Present) Name:Eddy Barnhart Relation to Subscriber:Self Name:Eddy Barnhart Payer ID:[id number] (NAIC) Type:POS Address: [address] [place] [id number] Care Teams Accounts Receivable Clerk Relationship Specialty Start Date End Date Edwin Mensah DO [facility] [address] [place] [address] PCP - General Internal Medicine 01/02/17
--- OUTSIDE RECORDS SUMMARY | 2025-02-07 14:44 | XMS_ITS | Clinical Summary ---
Author Organization [facility] (historical information prior to 11/19/2024 only) Address [address] [place] [address] Care Team Providers Care Payroll Lead Name Role Phone Edwin Mensah DO Primary Care Provider [phone] Allergies No known active allergies Medications buprenorphine [...] patient's age to complete this topic Insurance [facility] PPO Care Teams Payroll Lead Relationship Specialty Start Date End Date Edwin Mensah DO [address] [place] [address] PCP - General Internal Medicine 02/29/24
--- OUTSIDE RECORDS SUMMARY | 2025-02-07 14:44 | XMS_ITS | Encounter Summary ---
Author Organization [facility] (historical information prior to 11/19/2024 only) Address [address] [place] [address] Care Team Providers Care Battery Recharger Name Role Phone Edwin Mensah DO Primary Care Provider [phone] Encounter Details Date Type Department Care Team (Late st Contact Info) Description 03/04/2024 Prep for Case [facility] [id number] Eddy Baker MD [address] [place] [id number] Social History Tobacco Use Types Packs/Day Years [...] on filedocumented in this encounter Care Teams Battery Recharger Relationship Specialty Start Date End Date Edwin Mensah DO [address] [place] [address] PCP - General Internal Medicine 02/29/24 documented as of this encounter
--- OUTSIDE RECORDS SUMMARY | 2025-02-07 14:44 | XMS_ITS | Encounter Summary ---
Author Organization [facility] (historical information prior to 11/19/2024 only) Address [address] [place] [address] Care Team Providers Care J2Ee Architect Name Role Phone Edwin Mensah DO Primary Care Provider [phone] Reason for Referral * Diagnostic Imaging (Routine) - Pending Review Specialty Diagnoses / Procedures Referred By Roselyn t Referred To Contact Radiology Diagnoses Pain in joint of left shoulder Procedures X-RAY SHOULDER 2+ VIEWS LEFT Eddy Baker MD [address] [place] [address] Phone: tel: fax: Referral ID Status Reason Start Date Expiration Date V isits Requested Visits Authorized [id number] Pending Review 06/26/2024 06/26/2025 1 1 Encounter Details Date Type Department Care Team (Late st Contact Info) Description 06/26/2024 Ancillary Orders [facility] X-ray [address] [place] [address] Eddy Baker MD [address] [place] [address] Pain in joint of left shoulder (Primary [...] interpretation. Dictated: 06/27/2024 3:27 PM Report ID: [id number] Exam performed at [facility]. Report signed in external system at [facility] on 06/27/2024 15:27 Reported By: Hailey Burgess M.D. (resident) ([id number]) Signed By: Isaac Magana M.D. ([facility]) Narrative 06/27/2024 3:27 PM EDT RESPONSIBLE CHILD CARE WORKER: Isaac Magana M.D. EXAMINATION: XR SHOULDER 2+ [...] Note Isaac Magana MD - 06/27/2024 RESPONSIBLE CHILD CARE WORKER: Isaac Magana M.D. EXAMINATION: XR SHOULDER 2+ [...] interpretation. Dictated: 06/27/2024 3:27 PM Report ID: [id number] Exam performed at [facility]. Report signed in external system at [facility] on 515:27 Reported By: Hailey Burgess M.D. (resident) ([id number]) Signed By: Isaac Magana M.D. ([facility]) us Eddy Baker MD IMG XR PROCEDURES Final Result documented in this encounter Visit Diagnoses Diagnosis Pain in joint of left shoulder- Primary Pain in joint of left shoulder documented in this encounter Care Teams J2Ee Architect Relationship Specialty Start Date End Date Edwin Mensah DO [address] [place] [address] PCP - General Internal Medicine 02/29/24 documented as of this encounter
--- OUTSIDE RECORDS SUMMARY | 2025-02-07 14:44 | XMS_ITS | Clinical Summary ---
Author Organization [facility] Address [address] [place], [place] [address] Care Team Providers Care Roller Mill Tender Name Role Phone Edwin Mensah Primary Care Provider Medications dextroamphetami ne-amphetamine ER (ADDERALL XR) 30 [...] Immunization Administration Dates Next Due COVID-19 Vaccine ([employer]) Original Formulation (prior to Feb 2021) 11/19/2020,05/21/2020,04/30/2020 [...] Orientation Straight 11/17/2024 9: 33 AM EDT Last Filed Vital Signs Vital Sign Reading [...] Date Last Done Comments Blood Pressure 1955 Hemoglobin A1c 1955 Lipid Panel 1955 PSA 1955 Prostate Cancer Screening 1955 SDM 1955 Depression Screening 1967 Hepatitis C Screening 12/28/1973 DTaP,Tdap,and Td Vaccines [...] age to complete this topic Care Teams Roller Mill Tender Relationship Specialty Start Date End Date Edwin Mensah [address] [place] [address] PCP - General Internal Medicine 02/29/24
--- OUTSIDE RECORDS SUMMARY | 2025-02-07 14:44 | XMS_ITS | Patient Health Record ---
Author Organization [facility] Address [address] [address] Care Team Providers Care Testing Engineer Name Role Phone NADYA LEE, DR RANDALL Primary Care Provider Unava LLUVIA Martinez Unavailable [phone] Allergies No Known Allergies Reason For Referral No Information Medications Medication SIG (Take, Route, Frequency, Duration) Notes Start Date End Date Status hydroCHLOROthiazide 25 MG 1 tab(s) orally qd Active Problems Problem Type SNOMED Code ICD Code Onset Dates Problem Status W/U Status Risk Notes Problem Stricture of artery (21811545) Stricture of artery (I77.1) Active confirmed Plan Of Treatment No Information Insurance Providers Payer Name Payer Address Payer Phone Subscriber Number Group Number Insured Name Patient Relationship to Insured Coverage Start Date Coverage End Date [facility] [address] [place] [address] [id number] DONY HYMAN Self - patient is the insured
--- OUTSIDE RECORDS SUMMARY | 2025-02-07 14:44 | XMS_ITS | Encounter Summary ---
Author Organization [facility] (historical information prior to 11/19/2024 only) Address [address] [place] [address] Care Team Providers Care Housing Director Name Role Phone Edwin Mensah DO Primary Care Provider [phone] Reason for Referral * Diagnostic Imaging (Routine) - Closed Specialty Diagnoses / Procedures Referred By Contac t Referred To Contact Radiology Diagnoses Other specified joint disorders, left shoulder Procedures CT SHOULDER LEFT WITHOUT CONTRAST Eddy Baker MD [address] [place] [address] Phone: tel: fax: Referral ID Status Reason Start Date Expiration Date Visits Re quested Visits Authorized [id number] Closed 02/23/2024 02/22/2025 1 1 Encounter Details Date Type Department Care Team (Late st Contact Info) Description 02/23/2024 Ancillary Orders [facility] CT Scan [address] [place] [address] Eddy Baker MD [address] [place] [address] Other specified joint disorders, left shoulder (Primary [...] lungs. Dictated: 03/11/2024 8:24 AM Report ID: [id number] Exam performed at [facility]. Report signed in external system at [facility] on 03/11/2024 08:24 Reported By: Grayson King M.D. ([facility]) Signed By: Grayson King M.D. ([facility]) Narrative 03/11/2024 8:24 AM EST RESPONSIBLE GIS WEB DEVELOPER: Grayson King M.D. EXAMINATION: CT SHOULDER LEFT [...] Note Grayson King MD - 03/11/2024 RESPONSIBLE GIS WEB DEVELOPER: Grayson King M.D. EXAMINATION: CT SHOULDER LEFT [...] lungs. Dictated: 03/11/2024 8:24 AM Report ID: [id number] Exam performed at [facility]. Report signed in external system at [facility] on 508:24 Reported By: Grayson King M.D. ([facility]) Signed By: Grayson King M.D. ([facility]) Eddy Baker MD IM CT PROCEDURES Final Result documented in this encounter Visit Diagnoses Diagnosis Other specified joint disorders, left shoulder- Primary Other specified joint disorders, left shoulder documented in this encounter Care Teams Housing Director Relationship Specialty Start Date End Date Edwin Mensah DO [address] [place] [address] [place] [address] PCP - General Internal Medicine 02/29/24 documented as of this encounter
--- OUTSIDE RECORDS SUMMARY | 2025-02-07 14:44 | XMS_ITS | Encounter Summary ---
Author Organization [facility] (historical information prior to 11/19/2024 only) Address [address] [place] [address] Care Team Providers Care Marketing Planning Manager Name Role Phone Edwin Mensah DO Primary Care Provider [phone] Reason for Referral * Diagnostic Imaging (Routine) - Pending Review Specialty Diagnoses / Procedures Referred By Roselyn roberts Referred To Contact Radiology Diagnoses Pain in joint of left shoulder Procedures X-RAY SHOULDER 2+ VIEWS LEFT Felipa Cazares PA [address] [place] [address] Phone: tel: fax: Referral ID Status Reason Start Date Expiration Date V isits Requested Visits Authorized [id number] Pending Review 05/04/2024 05/04/2025 1 1 Encounter Details Date Type Department Care Team (Late st Contact Info) Description 05/04/2024 Ancillary Orders [facility] X-ray [address] [place] [address] Felipa Cazares PA [address] [place] [address] Pain in joint of left shoulder (Primary [...] alignment. Dictated: 05/06/2024 11:41 AM Report ID: [id number] Exam performed at [facility]. Report signed in external system at [facility] on 05/06/2024 11:41 Reported By: Mark Steiner M.D. ([place]) Signed By: Mark Steiner M.D. ([place]) Narrative 05/06/2024 11:41 AM EDT RESPONSIBLE VETERANS REHABILITATION COUNSELOR: Mark Steiner M.D. EXAMINATION: XR SHOULDER 2+ [...] Note Mark Steiner MD - 05/06/2024 RESPONSIBLE VETERANS REHABILITATION COUNSELOR: Mark Steiner M.D. EXAMINATION: XR SHOULDER 2+ [...] alignment. Dictated: 05/06/2024 11:41 AM Report ID: [id number] Exam performed at [facility]. Report signed in external system at [facility] on 1:41 Reported By: Mark Steiner M.D. ([place]) Signed By: Mark Steiner M.D. ([place]) Felipa FERNANDEZ IMG XR PROCEDURES Final Result documented in this encounter Visit Diagnoses Diagnosis Pain in joint of left shoulder- Primary Pain in joint of left shoulder documented in this encounter Care Teams Marketing Planning Manager Relationship Specialty Start Date End Date Edwin Mensah DO [address] [place] [address] PCP - General Internal Medicine 02/29/24 documented as of this encounter
--- OUTSIDE RECORDS SUMMARY | 2025-02-07 14:44 | XMS_ITS | Encounter Summary ---
Author Organization [facility] (historical information prior to 11/19/2024 only) Address [address] [facility] [place] [address] Care Team Providers Care Floor Layer Tile Name Role Phone Edwin Mensah DO Primary Care Provider [phone] Encounter Details Date Type Department Care Team (Late st Contact Info) Description 03/18/2024 Procedure Pass [facility] [address] [place] [address] [phone] Social History Tobacco Use Types Packs/Day [...] on filedocumented in this encounter Care Teams Floor Layer Tile Relationship Specialty Start Date End Date Edwin Mensah DO [address] [place] [address] PCP - General Internal Medicine 02/29/24 documented as of this encounter
== END 2025-02-07 13:49 | disposition home or self-care (01) ==
LOC: HO.HNS 13:35
PROVIDERS: PCP Internal Medicine; Visit Provider Physician Assistant
DX: Z98.890 Other specified postprocedural states (principal)
CPT/HCPCS: 99024